=== PATIENT | female | born 1975 | race Hispanic/Latino ===

== ENCOUNTER 2021-10-22 19:39 | Emergency (ER) | payer OTHER ==
[~2021-10-22] VITALS: Ht 152.4 cm; Wt 69.4 kg
[2021-10-22] MEDS ORDERED: ACETAMINOPHEN 500 MG TABLET ONE (19:51)
[2021-10-22 21:18] VITALS: BP 121/70
[2021-10-22] MEDS ORDERED: GUAIFENESIN-CODEINE 5 ML SYRUP PO ONE (21:30)
[2021-10-22] MEDS ORDERED: KETOROLAC 30MG VIAL (30MG/ML) IM ONE (21:30)
[2021-10-22] MEDS ORDERED: GUAIFENESIN-DM 200/20 MG 10 ML ONE (21:38)
[2021-10-22] MEDS ORDERED: KETOROLAC 30MG VIAL (30MG/ML) ONE (21:38)
[2021-10-22] MEDS ORDERED: IBUP-2070 PO (21:39)
[2021-10-22] MEDS ORDERED: BENZ-39 PO (21:39)
[2021-10-22] MEDS ORDERED: ACET1TAB25 PO (21:39)
== END 2021-10-22 22:17 | disposition home or self-care (01) ==
LOC: EDH 19:39
DX: U07.1 COVID-19 (principal); R05.9 Cough, unspecified; R51.9 Headache, unspecified; E03.9 Hypothyroidism, unspecified; E11.9 Type 2 diabetes mellitus without complications; Z79.1 Long term (current) use of non-steroidal anti-inflammatories (NSAID); Z90.49 Acquired absence of other specified parts of digestive tract
CPT/HCPCS: 71045; 96372; 99283; J1885